=== PATIENT | male | born 1995 | race Two or more races ===

== ENCOUNTER 2019-07-31 19:25 | Emergency (ER) | payer MEDICAID ==
[~2019-07-31] VITALS: Ht 182.9 cm; Wt 91.0 kg
[2019-07-31 19:59] LABS: BASOPHILS # (AUTO) 0.1 X10'3 (0-0.2); BASOPHILS % (AUTO) 0.5 % (0-1); EOSINOPHILS # (AUTO) 0.1 X10'3 (0-0.9); EOSINOPHILS % (AUTO) 0.8 % (0-6); HEMATOCRIT 45.6 % (42.0-52.0); HEMOGLOBIN 15.7 g/dl (14.0-17.9); LYMPHOCYTES # (AUTO) 1.2 X10'3 (1.1-4.8); LYMPHOCYTES % (AUTO) 8.6 % (21-51); MEAN CORPUSCULAR HEMOGLOBIN 29.2 PG (27.0-31.0); MEAN CORPUSCULAR HGB CONC 34.4 g/dL (33.0-36.5); MEAN CORPUSCULAR VOLUME 84.9 FL (78-98); MEAN PLATELET VOLUME 7.9 FL (7.4-10.4); MONOCYTES # (AUTO) 0.9 X10'3 (0-0.9); MONOCYTES % (AUTO) 6.6 % (2-12); NEUTROPHILS # (AUTO) 11.7 X10'3 (1.8-7.7); NEUTROPHILS % (AUTO) 83.5 % (42-75); PLATELET COUNT 302 X10'3 (140-440); RED BLOOD COUNT 5.36 X10'6 (4.70-6.10)
[2019-07-31 20:14] LABS: ALANINE AMINOTRANSFERASE 64 U/L (12-78); ALBUMIN 4.5 G/DL (3.4-5.0); ALBUMIN/GLOBULIN RATIO 1.3 (1.1-1.5); ALKALINE PHOSPHATASE 89 IU/L (46-116); ANION GAP 9 (8-16); ASPARTATE AMINO TRANSFERASE 32 U/L (10-37); BILIRUBIN,TOTAL 0.9 MG/DL (0.1-1.0); BLOOD UREA NITROGEN 12 MG/DL (7-18); BUN/CREATININE RATIO 12.5 (5.4-32.0); CALCIUM 9.8 MG/DL (8.5-10.1); CHLORIDE 103 MMOL/L (99-107); CREATININE 0.96 MG/DL (0.60-1.10); GLUCOSE 110 MG/DL (70-104); LIPASE 108 U/L (73-393); POTASSIUM 3.8 MMOL/L (3.5-5.1); SODIUM 139 MMOL/L (135-145); TOTAL CARBON DIOXIDE 26.7 MMOL/L (24-32); TOTAL PROTEIN 8.1 G/DL (6.4-8.2); eGFR > 90 ML/MIN
[2019-07-31 20:30] VITALS: BP 161/83
[2019-07-31 21:21] LABS: CLARITY,URINE CLEAR (Clear); COLOR,URINE YELLOW (Yellow); GLUCOSE, URINE NEGATIVE (Neg); KETONES,URINE NEGATIVE (Neg); LEUKOCYTE ESTERASE ,URINE NEGATIVE (Neg); NITRITES, URINE NEGATIVE (Neg); OCCULT BLOOD,URINE SMALL (Neg); PH,URINE 5.5 (4.8-8.0); PROTEIN,URINE NEGATIVE (Neg); UROBILINOGEN,URINE 0.2 E.U/dL (0.2-1.0)
[2019-07-31 21:23] LABS: UA COLLECTION TYPE CLN CATCH MIDSTREAM
[2019-07-31 21:28] LABS: BACTERIA,URINE NONE SEEN /HPF (Neg); MUCUS STRANDS FEW /LPF (Neg); RBC,URINE NONE SEEN /HPF (0-2); SQUAMOUS EPITHELIAL CELL,UR FEW /LPF (FEW); WBC,URINE 0-4 /HPF (0-4)
[2019-07-31 21:29] LABS: ETHANOL < 0.010 GM/DL (0.0-0.010); MAGNESIUM 1.6 MG/DL (1.5-2.4)
[2019-07-31 21:29] LABS: SPERM FEW /HPF (NEGATIVE)
[2019-07-31 21:32] LABS: URINE AMPHETAMINE SCREEN NEGATIVE (Neg); URINE BARBITUATE SCREEN NEGATIVE (Neg); URINE BENZODIAZEPINES SCREEN NEGATIVE (Neg); URINE CANNABINOID SCREEN POSITIVE (Neg); URINE COCAINE SCREEN NEGATIVE (Neg); URINE METHADONE SCREEN NEGATIVE (Neg); URINE OPIATE SCREEN NEGATIVE (Neg); URINE PHENCYCLIDINE SCREEN NEGATIVE (Neg)
[2019-07-31] MEDS ORDERED: pantoprazole 40mg Tablet.DR PO ONE (21:45)
[2019-07-31] MEDS ORDERED: dicyclomine 10 MG capsule PO ONE (21:45)
[2019-07-31] MEDS ORDERED: mag hydrox/Alum hydrox/simeth 30ml oral suspension PO ONE (21:45)
[2019-07-31] MEDS ORDERED: LIDOcaine Viscous 15ml cup MM ONE (21:45)
[2019-07-31] MEDS ORDERED: PANT-47 PO (21:47)
[2019-07-31] MEDS ORDERED: SUCR1ORA12 PO (21:47)
== END 2019-07-31 22:02 | disposition home or self-care (01) ==
LOC: ER 19:26
DX: K29.20 Alcoholic gastritis without bleeding (principal); F10.10 Alcohol abuse, uncomplicated; J45.909 Unspecified asthma, uncomplicated; F12.90 Cannabis use, unspecified, uncomplicated; Z79.899 Other long term (current) drug therapy; Y90.0 Blood alcohol level of less than 20 mg/100 ml
CPT/HCPCS: 36415; 80053; 80305; 80320; 81001; 83690; 83735; 85025; 99284

== ENCOUNTER 2022-03-18 22:57 | Emergency (ER) | payer MEDICAID ==
[~2022-03-18] VITALS: Ht 185.4 cm; Wt 113.6 kg
[~2022-03-18 22:57] MED LIST: PANT-47 PO; SUCR1ORA12 PO
[2022-03-18 23:00] VITALS: BP 142/81
[2022-03-18] MEDS ORDERED: ibuprofen tablet 400 MG TABLET PO STA (23:11)
--- NOTE | 2022-03-18 23:15 | NUR ---
PT HAS SWELLING OVER RIGHT 5TH METACARPAL AFTER PUNCHING A DOOR. ICE TO AREA. CAP REFILL WNLS.
[2022-03-18] MEDS ORDERED: HYDROcodone/acetaminophen 10/325mg tab PO ONE (23:25)
[2022-03-18] MEDS ORDERED: IBUP-1986 PO (23:33)
[2022-03-18] MEDS ORDERED: HYDR-3965 PO (23:33)
== END 2022-03-19 00:38 | disposition home or self-care (01) ==
LOC: ER 22:58
DX: S62.334A Displaced fracture of neck of fourth metacarpal bone, right hand, initial encounter for closed fracture (principal); S62.336A Displaced fracture of neck of fifth metacarpal bone, right hand, initial encounter for closed fracture; M79.641 Pain in right hand; J45.909 Unspecified asthma, uncomplicated; F12.90 Cannabis use, unspecified, uncomplicated; Z72.89 Other problems related to lifestyle; Z79.899 Other long term (current) drug therapy; X58.XXXA Exposure to other specified factors, initial encounter; Y93.89 Activity, other specified; Y92.89 Other specified places as the place of occurrence of the external cause; Y99.8 Other external cause status
CPT/HCPCS: 26605; 73130; 99284